=== PATIENT | female | born 1965 | race Hispanic/Latino ===

== ENCOUNTER 2020-03-01 11:17 | Outpatient (CLI) | payer OTHER ==
--- NOTE | 2020-03-01 11:43 | RAD ---
Exam:3 views right shoulder HISTORY: Pain. COMPARISON: None FINDINGS: Glenohumeral joint space is preserved. No fracture or dislocation. Acromioclavicular and co racoclavicular this is maintained. No abnormality in the visualized right lung parenchyma and right ribs. IMPRESSION: No fracture or dislocation. No significant degenerative change. If there is concern for p ossible rotator cuff tendinopathy MRI may be beneficial.
== END 2020-03-01 11:18 | disposition home or self-care (01) ==
LOC: NAV RAD 11:17
PROVIDERS: ATTEND Nurse Practitioner Family
DX: M25.511 Pain in right shoulder (principal); E11.9 Type 2 diabetes mellitus without complications